=== PATIENT | male | born 1980 | race Two or more races ===

== ENCOUNTER 2016-11-26 13:53 | Emergency (ER) | payer OTHER ==
[~2016-11-26] VITALS: Ht 170.2 cm; Wt 100.9 kg
[2016-11-26 13:59] VITALS: BP 174/100; PULSE 112; RESP 20; O2SAT 98
--- NOTE | 2016-11-26 15:15 | ED.REPORT ---
HPI-General Illness Date of Service Nov 26, 2016 ED Provider: Doc,Ed MD The patient is a 36 year old male with history of ITP, chronic back, neck, and shoulder pain, and seizures, who presents to the emergency department complaining of worsening back, knee, and shoulder pain that began after he started Prednisone. His pain is similar in character to his chronic pain but is more severe. He normally takes gabapentin and cyclobenzaprine for his pain. He has an injection scheduled for his right shoulder next Tuesday. Nursing Notes Stated Complaint: PAIN ALL OVER BODY/ALLERGIC REACTION Chief Complaint: General Complaint Nursing Notes Reviewed: Yes Allergies: Uncoded Allergies: SHELLFISH (Adverse Reaction, Unknown, 11/26/16) General Time Seen by MD: 15:15 Chief Complaint Back pain Hx Obtained From: Patient Arrived By: Walk-in Sudden in Onset?: No Onset Occurred: 3 days ago Symptom Duration: Since onset Location: : Back Quality: Painful Severity: Current: Severe Severity: Maximum: Severe Recent Healthcare: No recent hospitalization Similar Sx Previous: Yes Past Medical History Past Medical History Seizures Chromic pain ITP Family History Adopted from [facility] at age 12 Smoking History Unknown if Ever Smoker Social History Alcohol Use: Denies alcohol use Drug Use: Denies drug use Other Social History: Good social support, Local resident Ambulatory Status Cane Review of Systems Full Review of Systems Musculoskeletal: Reports: Back pain, Extremity pain, Joint pain Complete sys rev & neg: except as marked. Physical Exam Vital Signs Vital Signs Date Time Temp Pulse Resp B/P Pulse Ox O2 Delivery O2 Flow Rate FiO2 11/26/16 17:03 109 16 151/104 99 Room Air 11/26/16 16:25 109 16 151/104 99 Room Air 11/26/16 13:59 37.2 112 20 174/100 98 Room Air Initial VS: Reviewed Head / Eyes: Atraumatic, Normocephalic, PERRL ENT: Mucous membranes moist, Conjunctiva normal, No scleral icterus Neck: Supple, Non-tender, Full range of motion Respiratory: Breath sounds normal, Clear to auscultation, No respiratory distress Cardiovascular: Regular rate & rhythm, Heart sounds normal, Intact distal pulses Abdomen / GI: Soft, Non-tender, No guarding, No rebound, No distention Lymphatic: No lymphadenopathy Extremities: No swelling Skin: Warm, Dry, No cyanosis Psychiatric: Mood/affect normal, Behavior normal, Normal thought content General/Constitutional: Awake, Alert Distress / Hydration: Positive: Distress moderate Appearance / Presentation: Positive: In pain Back: No CVA tenderness Positive straight leg raise on the left. Lumbar tenderness to palpation. Upper Extremities Upper Extremity / MS: Neurologic intact, Vascular intact Left shoulder tenderness Neurologic: Oriented X3, Speech NL Diminished to left lower extremity (chronic), limited motor function likely due to pain. Interpretation & Diagnostics Lab Results Interpretation Result Diagram: 11/26/16 1632 Test 11/26/16 16:32 White Blood Count 17.5th/mm3 (3.8-10.1) Red Blood Count 4.67mil/mm3 (4.40-5.80) Hemoglobin 12.6g/dL (13.8-17.2) Hematocrit 35.8% (41.0-50.0) Mean Corpuscular Volume 76.7fL (81-100) Mean Corpuscular Hemoglobin 27.0pg (27.0-35.0) Mean Corpuscular Hemoglobin Concent 35.2% (32.0-37.0) Red Cell Distribution Width 13.2% (12.3-15.4) Platelet Count 50bil/L (150-400) Neutrophils (%) (Auto) 78.5% (40-74) Lymphocytes (%) (Auto) 13.6% (14-46) Monocytes (%) (Auto) 4.5% (4-12) Eosinophils (%) (Auto) 0.2% (0-5) Basophils (%) (Auto) 0.2% (0-3) Re-Eval/Medical Decision Med Decision/Clinical Course Patient had abrupt near complete resolution of symptoms after getting Toradol and Valium, he has mild leukocytosis which is likely due to D margination from steroid use rather than acute infection. He is afebrile he does not report any change in the neurologic behavior of his chronic pain but rather that it flared up today after taking prednisone for some reason. I was suspicious for spinal abscess or other acute life-threatening pathology. He is recommended to follow-up with his primary care. Return in follow-up precautions given. Source of Hx: Old records, Friend Time of Eval: 16:45 Re-Evaluation/Progress Note: Rechecked the patient. He is feeling much better. Discussed plan for discharge. All questions were addressed. Counseled Regarding: Diagnosis, Need for follow-up, When/why to return to ED Discharge & Departure Primary Impression: Exacerbation of chronic back pain Disposition: Home Discharge Condition All VS Reviewed: Yes Condition: Stable Additional Instructions: Thank you for entrusting us with your care today. I am glad you are feeling better. Continue taking your normally prescribed medication as needed for your pain. Followup with your regular doctor next week for re-evaluation. Return to the emergency department for any new or concerning symptoms. Referrals: OTHER,PHYSICIAN (PCP) (Family) Scribe Attestation Portions of this note were transcribed by Jeanne Fontaine. I, Dr. Landin personally performed the history, physical exam and medical decision-making; I reviewed and confirmed the accuracy of the information in the transcribed note. Signed by: Saleem Virgen, 11/26/2016 at 1700. Tom Landin DO Nov 26, 2016 15:15 Jeanne Fontaine Nov 26, 2016 15:20
[2016-11-26 16:25] VITALS: BP 151/104; PULSE 109; RESP 16; O2SAT 99
[2016-11-26 16:43] LABS: EOSINOPHILS % (AUTO) 0.2 % (0-5)
[2016-11-26 16:48] LABS: BASOPHILS % (AUTO) 0.2 % (0-3); MONOCYTES % (AUTO) 4.5 % (4-12); Mean Corpuscular Volume 76.7 fL (81-100); NEUTROPHILS % (AUTO) 78.5 % (40-74); Platelet Count 50 bil/L (150-400)
[2016-11-26 17:03] VITALS: BP 151/104; PULSE 109; RESP 16; O2SAT 99
== END 2016-11-26 16:55 | disposition home or self-care (01) ==
LOC: SED 13:53
DX: M54.9 Dorsalgia, unspecified (principal); G89.29 Other chronic pain
CPT/HCPCS: 85025; 96372; 99284; J1885; J3360